=== PATIENT | female | born 1945 | race Caucasian/White ===

== ENCOUNTER 2021-03-02 00:18 | Day surgery (SDC) | payer MEDICARE, SELFPAY ==
[2021-02-15 14:58] VITALS: BMI 24.3
[2021-03-02 06:45] VITALS: BP 148/60; PULSE 94; RESP 18; TEMP 36.2; O2SAT 94
[2021-03-02] MEDS: SODIUM CHLORIDE 0.9% IV 500 ML 10 ML IV CONT (06:49)
[2021-03-02 06:59] LABS: Glucose Point of Care 124 mg/dl (65-105)
--- NOTE | 2021-03-02 07:17 | WPDANESEPPF ---
Anes - Initial Pre Proc Eval Procedure: Operation Date: 03/02/21 08:00 Proposed Procedures p Screening Colonoscopy - Reece Manrique MD Date/Time: 03/02/21 07:17 Surgeon: Reece Manrique MD Pre Op Diagnosis: neoplasm screening Patient Data Age: 75 Gender: F Height: 1.68 m Weight: 85 kg Last Vital Signs Temp 36.2 C L 03/02/21 06:45 Pulse 94 03/02/21 06:45 Resp 18 03/02/21 06:45 BP 148/60 H 03/02/21 06:45 Pulse Ox 94 03/02/21 06:45 Allergies Allergy/AdvReac Type Severity Reaction Status Date / Time No Known Allergies Allergy Verified 03/02/21 06:43 Home Medications Medication Instructions Recorded Confirmed Type acetaminophen [Tylenol Extra 500 mg PO Q6H PRN 07/22/19 02/15/21 History Strength] aspirin 81 mg tablet,delayed 81 mg PO DAILY 03/17/20 02/15/21 History release atorvastatin 40 mg tablet 40 mg PO DAILY #90 tablet 07/14/20 02/15/21 Rx venlafaxine 75 mg capsule,extended 75 mg PO DAILY #90 cap 10/27/20 02/15/21 Rx release 24 hr levothyroxine 150 mcg tablet 150 mcg PO DAILY #90 tablet 01/06/21 02/15/21 Rx gabapentin 100 mg capsule 100 mg PO TID #270 cap 01/12/21 02/15/21 Rx vitamin B comp with vit C no.6 1 tablet PO DAILY 02/15/21 02/15/21 History Laboratory Tests 03/02/21 06:56 POC Capillary Glucose 124 mg/dl H mg/dl (65-105) Patient hx anesthesia problems: none Family hx anesthesia problems: none PMFSH Past Medical History Medical History (Updated 02/17/21 @ 08:09 by Luis Bianchi MD) Anemia Bilateral artificial lens implant Bilateral carotid bruits Breast cancer screening by mammogram Cerebrovascular accident (CVA) with right hemiparesis September, Chronic anxiety Chronic bilateral low back pain with sciatica Chronic depression Chronic kidney disease (CKD) stage G4/A1, severely decreased glomerular filtration rate (GFR) between 15-29 mL/min/1.73 square meter and albuminuria creatinine ratio less than 30 mg/g Colon cancer screening Controlled diabetes mellitus with hyperglycemia, with long-term current use of insulin Controlled diabetes mellitus, without long-term current use of insulin Coronary artery disease involving [place] heart without angina pectoris Dependence on renal dialysis Diabetic peripheral neuropathy Diastolic CHF 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 The RAMA on the left was normal at 1.06. 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 Renal cell carcinoma treated with right nephrectomy on September 26, 2007 Screening for diabetic retinopathy (02/09/21) no diabetic retinopathy or macular edema on 02/09/2021 TIA (transient ischemic attack) MRI of the brain on 02/04/2021 with chronic age-related changes with atrophy and demyelination. carotid Doppler study on 02/04/2021 reveals no significant carotid artery disease. Vaginitis Visual loss, both eyes Vitamin B12 deficiency anemia Vitamin D deficiency, unspecified Surgical History Surgical History History of back surgery History of cholecystectomy History of heart artery stent History of hernia surgery History of hysterectomy History of lumpectomy of left breast History of lumpectomy of right breast History of nasal surgery History of neck surgery History of tonsillectomy Status post left foot surgery Family History Family History Father Family history of cardiovascular disease, Onset Age: 67 Social History Social History (Reviewed
--- NOTE | 2021-03-02 08:03 | PM.HPGS ---
History of Present Illness History of Present Illness Consent: Risks, benefits, and alternatives have been discussed and questions answered. Patient agrees to proceed with procedure. Chief complaint: neoplasm screening Narrative: Michelle Boateng is a 75 year old female with ESRD on dialysis, her last colonoscopy 5 years ago, due to have another one. Review of Systems Constitutional: Constitutional: Denies headache(s) and Denies weakness Eyes: Eyes: Denies blurry vision ENT: Reports Normal hearing present, Denies headache(s) and Denies neck pain Cardiovascular: Cardiovascular: Denies chest pain and Denies dyspnea Respiratory: Respiratory: Denies dyspnea Gastrointestinal: Gastrointestinal: Reports no additional gastrointestinal complaints Genitourinary: Genitourinary: Denies dysuria Musculoskeletal: Musculoskeletal: Denies neck pain Integumentary/Breasts: Skin/Breast: Denies dry skin Neurologic: Reports Normal hearing present, Denies headache(s) and Denies weakness Psychiatric: Psychiatric: Denies anxiety Endocrine: Endocrine: Denies change in body appearance Hematologic/Lymphatic: Hematologic/Lymphatic: Denies easy bleeding Allergic/Immunologic: Allergic/Immunologic: Denies urticaria [facility] Past Medical History Medical History (Updated 02/17/21 @ 08:09 by Luis Bianchi MD) Anemia Bilateral artificial lens implant Bilateral carotid bruits Breast cancer screening by mammogram Cerebrovascular accident (CVA) with right hemiparesis September, Chronic anxiety Chronic bilateral low back pain with sciatica Chronic depression Chronic kidney disease (CKD) stage G4/A1, severely decreased glomerular filtration rate (GFR) between 15-29 mL/min/1.73 square meter and albuminuria creatinine ratio less than 30 mg/g Colon cancer screening Controlled diabetes mellitus with hyperglycemia, with long-term current use of insulin Controlled diabetes mellitus, without long-term current use of insulin Coronary artery disease involving [place] heart without angina pectoris Dependence on renal dialysis Diabetic peripheral neuropathy Diastolic CHF 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 The RAMA on the left was normal at 1.06. 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 Renal cell carcinoma treated with right nephrectomy on September 26, 2007 Screening for diabetic retinopathy (02/09/21) no diabetic retinopathy or macular edema on 02/09/2021 TIA (transient ischemic attack) MRI of the brain on 02/04/2021 with chronic age-related changes with atrophy and demyelination. carotid Doppler study on 02/04/2021 reveals no significant carotid artery disease. Vaginitis Visual loss, both eyes Vitamin B12 deficiency anemia Vitamin D deficiency, unspecified Surgical History Surgical History History of back surgery History of cholecystectomy History of heart artery stent History of hernia surgery History of hysterectomy History of lumpectomy of left breast History of lumpectomy of right breast History of nasal surgery History of neck surgery History of tonsillectomy Status post left foot surgery Family History Family History Father Family history of cardiovascular disease, Onset Age: 67 Social History Social History Smoking status: Former smoker Alcohol intake: never Living arrangements: alone Gender identity (if verbalized by the patient): Female Spiritual care concerns: N
[2021-03-02 08:40] VITALS: BP 106/83; PULSE 80; RESP 23; O2SAT 94
[2021-03-02 08:50] VITALS: BP 111/52; PULSE 82; RESP 23; O2SAT 94
[2021-03-02 09:00] VITALS: BP 115/72; PULSE 82; RESP 23; O2SAT 95
[2021-03-02 09:06] LABS: Glucose Point of Care 118 mg/dl (65-105)
== END 2021-03-02 09:15 | disposition home or self-care (01) ==
PROVIDERS: PCP Family Medicine; Visit Provider Internal Medicine Gastroenterology
PROC: 0DJD8ZZ Inspection of Lower Intestinal Tract, Via Natural or Artificial Opening Endoscopic (ICD-10-PCS; CPT 45378; principal; 2021-03-02 08:00)
DX: Z12.11 Encounter for screening for malignant neoplasm of colon (principal); K57.30 Diverticulosis of large intestine without perforation or abscess without bleeding; K64.8 Other hemorrhoids; E11.22 Type 2 diabetes mellitus with diabetic chronic kidney disease; I13.2 Hypertensive heart and chronic kidney disease with heart failure and with stage 5 chronic kidney disease, or end stage renal disease; I50.9 Heart failure, unspecified; N18.6 End stage renal disease; Z99.2 Dependence on renal dialysis; Z87.891 Personal history of nicotine dependence; E55.9 Vitamin D deficiency, unspecified; E03.9 Hypothyroidism, unspecified; E53.8 Deficiency of other specified B group vitamins; Z85.528 Personal history of other malignant neoplasm of kidney; Z86.73 Personal history of transient ischemic attack (TIA), and cerebral infarction without residual deficits; M19.90 Unspecified osteoarthritis, unspecified site; Z79.4 Long term (current) use of insulin; E11.65 Type 2 diabetes mellitus with hyperglycemia; F32.9 Major depressive disorder, single episode, unspecified; E11.21 Type 2 diabetes mellitus with diabetic nephropathy; R09.89 Other specified symptoms and signs involving the circulatory and respiratory systems; Z79.82 Long term (current) use of aspirin; E66.9 Obesity, unspecified; Z68.30 Body mass index [BMI] 30.0-30.9, adult; I25.10 Atherosclerotic heart disease of native coronary artery without angina pectoris
CPT/HCPCS: G0121; 82948; J2704; J7040

== ENCOUNTER → 2021-04-20 12:33 | Outpatient (CLI) | payer MEDICARE, SELFPAY ==
--- NOTE | ~2021-04-20 | MM_ITS ---
EXAMINATION: MM screening [facility] BI w mona HISTORY: Screening mammogram TECHNIQUE: Craniocaudal and mediolateral oblique 3-D tomosynthesis images were obtained and synthetic 2-D images were generated. CAD analysis was submitted and interpreted. COMPARISON: 05/20/2011, 05/18/2010, 05/21/2009 BREAST PARENCHYMAL COMPOSITION: There are scattered areas of fibroglandular density. FINDINGS: There is no evidence of suspicious mass, calcification, or architectural distortion to sugg est malignancy in either breast. There has been no suspicious interval change. IMPRESSION: 1. No mammographic evidence of malignancy. 2. Recommend routine screening mammography in one year. BI-RADS Category 1: Negative Reviewed, dictated and finalized at location A.
== END ==
PROVIDERS: PCP Family Medicine; Visit Provider Family Medicine
DX: Z12.31 Encounter for screening mammogram for malignant neoplasm of breast (principal)
CPT/HCPCS: 77063; 77067